=== PATIENT | female | born 1955 | race Caucasian/White ===

== ENCOUNTER 2018-12-01 11:53 | Day surgery (SDC) | payer BC ==
[2018-12-01] MEDS ORDERED: FENTAnyl 50 MCG/ML VIAL (14:22)
[2018-12-01] MEDS ORDERED: LIDOCAINE 2% (SDV) 5 ML INJ (14:22)
[2018-12-01] MEDS ORDERED: ETOMIDATE 20 MG INJ (14:22)
[2018-12-01] MEDS ORDERED: PROPOFOL 20 ML (14:22)
[2018-12-01] MEDS ORDERED: MIDAZOLAM 1 MG/ML 2 ML INJ (14:22)
[2018-12-01] MEDS ORDERED: LABETALOL HCL 20MG INJ IV (15:00)
[2018-12-01] MEDS ORDERED: ONDANSETRON 4 MG INJ IV (15:00)
== END 2018-12-01 16:07 | disposition home or self-care (01) ==
LOC: GIL 11:53
DX: K29.50 Unspecified chronic gastritis without bleeding (principal); K64.8 Other hemorrhoids; K63.89 Other specified diseases of intestine; I10 Essential (primary) hypertension; E11.9 Type 2 diabetes mellitus without complications; I25.10 Atherosclerotic heart disease of native coronary artery without angina pectoris; E78.5 Hyperlipidemia, unspecified; E66.9 Obesity, unspecified; Z68.33 Body mass index [BMI] 33.0-33.9, adult
CPT/HCPCS: 43239; 82962; 88305; 88312